=== PATIENT | male | born 1945 | race Caucasian/White ===

== ENCOUNTER 2016-11-02 16:29 | Emergency (ER) | payer OTHER ==
[~2016-11-02] VITALS: Ht 162.6 cm; Wt 73.5 kg
[~2016-11-02 16:29] MED LIST: BENAZEPRIL HYDR40 MG PO; INDAPAMIDE1.25 MG PO; LEVSIN0.125 MG PO; NORVASC 5MG TAB5 MG PO; POTASSIUM CHLO10 ME1 PO; PRAVASTATIN SOD40 MG PO; XANAX0.5 MG PO
[2016-11-02 17:30] LABS: ABSOLUTE BASOPHIL COUNT 0 /CUMM (0.0-0.2); ABSOLUTE EOSINOPHIL COUNT 0 /CUMM (0.0-0.7); ABSOLUTE GRANULOCYTE CT 5.4 /CUMM (1.4-6.5); ABSOLUTE LYMPH COUNT 0.7 /CUMM (1.2-3.4); ABSOLUTE MONOCYTE COUNT 0.8 /CUMM (0.10-0.60); BASOPHIL % 0.4 % (0.0-2.0); EOSINOPHIL % 0.3 % (0-5); GRANULOCYTE % 77.5 % (42.2-75.2); HEMATOCRIT 48.3 % (42-52); MEAN CORPUSCULAR HGB 31.1 PG (27.0-31.0); MEAN CORPUSCULAR HGB CONC 34.7 G/DL (33.0-37.0); MEAN CORPUSCULAR VOLUME 89.5 FL (80.0-94.0); PLATELET COUNT 157 /CUMM (130-400); RED BLOOD CELL CT 5.41 /CUMM (4.70-6.10)
[2016-11-02] MEDS ORDERED: AMLODIPINE BESYL5 M1 PO (17:42)
[2016-11-02] MEDS ORDERED: ALPRAZOLAM0.5 M4 PO (17:42)
[2016-11-02] MEDS ORDERED: BENAZEPRIL HCL40 MG PO (17:42)
[2016-11-02] MEDS ORDERED: PRAVASTATIN SOD40 M2 PO (17:43)
[2016-11-02] MEDS ORDERED: INDAPAMIDE1.25 M1 PO (17:43)
[2016-11-02 18:13] VITALS: BP 128/76
--- NOTE | 2016-11-02 18:27 | ED GENERAL ADULT ---
History of Present Illness General Chief Complaint: Animal/Insect Bite Stated Complaint: PT HAS INSECT BITE TO THE RT ARM Source: patient Exam Limitations: no limitations Vital Signs & Intake/Output Vital Signs & Intake/Output Vital Signs Date Time Temp Pulse Resp B/P B/P Pulse O2 O2 Flow FiO2 Mean Ox Delivery Rate 11/02 1813 99.2 89 17 128/76 97 Room Air 11/02 1633 99.1 100 16 122/89 Allergies Coded Allergies: NO KNOWN ALLERGIES (11/02/16) Reconcile Medications Alprazolam 0.5 MG TABLET 1.5 TAB PO QPM SLEEP (Reported) Amlodipine Besylate 5 MG TABLET 1 TAB PO DAILY BP (Reported) Benazepril HCl 40 MG TABLET 1 TAB PO DAILY BP (Reported) Butalb/Acetaminophen/Caffeine (Fioricet 50-300-40 MG Capsule) 50 MG-300 MG-40 MG CAPSULE 1 TAB PO DAILY PRN headahce Doxycycline Hyclate 100 MG TABLET 1 TAB PO BID cellulitis Indapamide 1.25 MG TABLET 1 TAB PO DAILY BP (Reported) Pravastatin Sodium 40 MG TABLET 1 TAB PO QPM CHOLESTEROL (Reported) Triage Note: PT STATES SHE NOTICED A PIMPLE ON HIS RIGHT UPPER ARM 2 WEEKS AGO. PT STATES THE PIMPLE DISAPEARED AND THEN THE RED SPOT APPREARED AND HAS BEEN THERE FOR OVER A WEEK. PT STATES HE HAS HAD A FEVER AND HIS JOINTS ALL ACHE. Triage Nurses Notes Reviewed? yes Onset: Gradual Duration: day(s): Timing: recent history Severity: moderate HPI: 71-year-old male presents to emergency department complaining of rash on her right upper arm. Patient states that a week and a half ago the rash appeared as a pimple however the bilateral right and now redness is growing. Patient also complains of fevers and chills, he recorded a temperature of 101.2 at home. He is also complaining of arthralgias, malaise, headache. The headache is described as bilateral with no aura, he has a history of cervical disc herniations and states he has chronic headaches due to this condition. He states he had a sore throat at the beginning of the week however that has resolved. Denies abdominal pain, nausea, vomiting, changes in bowel movements, cough, dyspnea, chest pain, tick or insect bite. Patient states he drinks alcohol, 2 drinks a day, however he has not had a drink in over a week. (FRANSICO MEJIA PA-C) Past History Travel History Traveled to [place] past 21 day No Medical History Any Pertinent Medical History? see below for history Neurological: cercial disc herniation EENT: NONE Cardiovascular: hypertension Respiratory: NONE Gastrointestinal: GERD, irritable bowel syndrome Hepatic: NONE Renal: nephrolithiasis Musculoskeletal: NONE Psychiatric: NONE Endocrine: NONE Other Medical Hx: Lymphedema left leg Ventral hernia Surgical History Surgical History: cholecystectomy, hernia repair-inguinal (left), multiple back surgeries neck surgery for disc problem Psychosocial History Who do you live with Spouse Services at Home None What is your primary language Senegalese Tobacco Use: Never used ETOH Use: occasional use Illicit Drug Use: denies illicit drug use Family History Hx Contributory? Yes (FRANSICO MEJIA PA-C) Review of Systems Review of Systems Constitutional: Reports: see HPI. EENTM: Reports: no symptoms, see HPI. Respiratory: Reports: no symptoms. Cardiovascular: Reports: no symptoms. GI: Reports: no symptoms. Genitourinary: Reports: no symptoms. Musculoskeletal: Reports: see HPI. Skin: Reports: see HPI. Neurological/Psychological: Reports: no symptoms. Hematologic/Endocrine: Reports: no symptoms. Immunologic/Allergic: Reports: no symptoms. All Other Systems: Reviewed and Negative (FRANSICO MEJIA PA-C) Physical Exam Physical Exam General Appearance: well developed/nourished, no apparent distress, alert, awake Head: atraumatic, normal appearance Eyes: Bilateral: normal appearance. Ears, Nose, Throat: hearing grossly normal Neck: normal inspection, supple, full range of motion Respiratory: normal breath sounds, no respiratory distress, lungs clear Cardiovascular: tachycardia Gastrointestinal: normal bowel sounds, soft, no organomegaly, LUQ tenderness, no rebound tenderness, no gaurding Back: normal inspection, normal range of motion Extremities: normal inspection, normal range of motion Neurologic/Psych: awake, alert, oriented x 3 Skin: 6x4cm area of warmth, erythema, mild tenderness on right medial upper arm Core Measures ACS in differential dx? No CVA/TIA Diagnosis: No Severe Sepsis Present: No Septic Shock Present: No (FRANSICO MEJIA PA-C) Progress Differential Diagnoses I considered the following diagnoses in my evaluation of the patient: [ cellulitis, abscess, lyme disease, meningitis, migrane, cervical radiculopathy, viral illness] Plan of Care: Orders Procedure Date/time Status COMPREHENSIVE METABOLIC PANEL 11/02 1706 Complete CBC WITHOUT DIFFERENTIAL 11/02 1706 Complete Laboratory Tests 11/02/161717: Anion Gap 13, Estimated GFR > 60, BUN/Creatinine Ratio 20.0, Glucose 119 H, Calcium 10.0, Total Bilirubin 0.9, AST 100 H, ALT 124 H, Alkaline Phosphatase 81, Total Protein 7.4, Albumin 4.5, Globulin 2.9, Albumin/Globulin Ratio 1.6, CBC w Diff NO MAN DIFF REQ, RBC 5.41, MCV 89.5, MCH 31.1 H, RDW 13.0, MPV 8.0, Gran % 77.5 H, Lymphocytes % 10.2 L, Monocytes % 11.6 H, Eosinophils % 0.3, Basophils % 0.4, Absolute Granulocytes 5.4, Absolute Lymphocytes 0.7 L, Absolute Monocytes 0.8 H, Absolute Eosinophils 0, Absolute Basophils 0, PUBS MCHC 34.7 Patient states improvement in the quality of headache following Fioricet in emergency department. Patient did not recall a tick bite recently. Elevated liver enzymes with fever and arthralgias raise suspicion for tick born illness. Patient given 2 week course of doxycycline for cellulitis versus lyme/ erlichiosis. He was also given Fioricet for his headache. The patient was instructed to follow-up with his primary care doctor this week and inform him of results from today's visit. The patient was told he may need further blood work to evaluate his liver enzymes. The patient is in agreement with the plan of care. The patient was discussed with Dr. Zimmer. (FRANSICO MEJIA PA-C) Initial ED EKG: none (ROBERTO LAU,FRANSICO) Departure Departure Disposition: HOME OR SELF CARE Condition: Stable Clinical Impression Primary Impression: Cellulitis Secondary Impressions: Elevated liver enzymes Referrals: ANA RUIZ,TEVIN David (PCP/Family) Additional Instructions: Take full course of antibiotics. Call your primary care doctor to inform them that he was seen and evaluated today. Follow-up with your primary care doctor in 1 week so that they can reevaluate your rash. Inform them that your liver enzymes were elevated so they can repeat blood work. Increase fluids, rest. Return with any worsening symptoms or concerns. Departure Forms: Customer Survey General Discharge Information Prescriptions: Current Visit Scripts Doxycycline Hyclate 1 TAB PO BID #28 TAB Butalb/Acetaminophen/Caffeine (Fioricet 50-300-40 MG Capsule) 1 TAB PO DAILY PRN headahce #15 TAB (FRANSICO MEJIA PA-C) PA/[employer] Co-Sign Statement Statement: ED Attending supervision documentation- [X] I saw and evaluated the patient. I have also reviewed all the pertinent lab results and diagnostic results. I agree with the findings and the plan of care as documented in the PA's/[employer]'s documentation. [X] I have reviewed the ED Record and agree with the PA's/[employer]'s documentation. [] Additions or exceptions (if any) to the PAs/[employer]'s note and plan are summarized below: [] (MARYJO RUIZ,KAY Avila) Critical Care Note Critical Care Note Critical Care Time: non-applicable (FRANSICO MEJIA PA-C)
[2016-11-02] MEDS ORDERED: DOXYCYCLINE HY100 M4 PO (18:32)
[2016-11-02] MEDS ORDERED: FIORICET 50-301 EACH PO (18:33)
== END 2016-11-02 18:43 ==
LOC: ERH 16:29
PROVIDERS: Physician Assistant
DX: L03.113 Cellulitis of right upper limb (principal); R94.5 Abnormal results of liver function studies